=== PATIENT | female | born 1940 | race American Indian/Alaskan Native ===

== ENCOUNTER 2018-11-19 09:40 | Outpatient (CLI) | payer MEDICARE, OTHER ==
[2018-11-19 10:14] LABS: Blood Urea Nitrogen 11 mg/dL (7-17)
--- NOTE | 2018-11-19 12:49 | Cat Scan Report ---
CT CHEST WITH CONTRAST: HISTORY: Pulmonary nodule. COMPARISON: CT abdomen pelvis with contrast dated 10/26/18. TECHNIQUE: Helical CT in 1.25mm intervals following IV contrast. Sagittal and coronal reformatted images. FINDINGS: Thyroid gland: The thyroid gland appears slightly atrophic. No mass or nodule. Tracheobronchial tree: Normal. Esophagus: Normal. Heart: Normal. Pericardium: Normal. Mediastinum: The mediastinal vessels are widely patent. 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 No mediastinal mass or adenopathy. Lung Kaufman: No underlying parenchymal lung disease is appreciated. Previously described lower lung nodules are again identified. The 8 mm nodule at the right lung base is unchanged and may represent a pulmonary ligament. The 13 mm density in the lingula is unchanged and appears to represent a calcified granuloma with adjacent scarring. The remainder of the lungs are clear. No suspicious pulmonary nodules identified. Pleural Spaces: Normal. Musculoskeletal: Mild thoracic spondylosis no fracture or suspicious bony lesion. IMPRESSION: Bilateral lower lung densities are unchanged since the recent CT abdomen and pelvis. In my opinion, these do not represent suspicious pulmonary nodules as outlined above. Consider followup in 6-12 months to ensure stability. Congenital aortic arch anomaly.
== END 2018-11-19 09:41 | disposition home or self-care (01) ==
LOC: CT 09:40
PROVIDERS: ATTEND Internal Medicine
DX: R91.1 Solitary pulmonary nodule (principal); I10 Essential (primary) hypertension; E78.00 Pure hypercholesterolemia, unspecified; E11.9 Type 2 diabetes mellitus without complications
CPT/HCPCS: 36415; 71260; 82565; 84520; Q9967